=== PATIENT | male | born 1950 | race Two or more races ===

== ENCOUNTER 2022-03-19 18:13 | Inpatient (IN) | payer BC ==
[~2022-03-19] VITALS: Ht 172.7 cm; Wt 75.3 kg
--- NOTE | 2022-03-19 18:35 | NUR ---
BIB RA 889 FROM HOME,BACK PAIN AFTER GLF AT HOME. PLACED ON BED, AAOX3, BREATHING EVEN AND UNLABORED, IN PAIN WHEN MOVED 10/10 PS.
--- NOTE | 2022-03-19 19:38 | NUR ---
BLOOD DRAWN AND SENT TO LAB
--- NOTE | 2022-03-19 19:43 | NUR ---
PATIENT TAKEN TO CT VIA [place]
[2022-03-19 20:08] LABS: BASOPHILS % (AUTO) 0.3 % (0.0-2.0); HEMATOCRIT 42 % (39-51); HEMOGLOBIN 14.6 g/dL (13.5-17.5); LYMPHOCYTES # (AUTO) 0.5 K/uL (0.8-4.8); LYMPHOCYTES % (AUTO) 4.2 % (20.0-44.0); MEAN CORPUSCULAR HGB CONC 35 g/dl (31.0-36.0); MEAN CORPUSCULAR VOLUME 103 fL (80-96); MONOCYTES # (AUTO) 0.6 K/uL (0.1-1.30); NEUTROPHILS # (AUTO) 11.1 K/uL (1.8-8.9); NEUTROPHILS % (AUTO) 90.5 % (43.0-81.0); PLATELET COUNT (AUTO) 172 K/uL (150-450); RED BLOOD CELL COUNT(AUTO) 4.08 MIL/uL (4.5-6.0); WHITE BLOOD COUNT (AUTO) 12.2 K/uL (4.3-11.0)
--- NOTE | 2022-03-19 20:16 | NUR ---
URINE SAMPLE SENT TO LAB
[2022-03-19 20:24] LABS: CALCIUM, SERUM 9.3 mg/dL (8.5-10.1); CARBON DIOXIDE 26 mmol/L (21-32); CHLORIDE 103 mmol/L (98-107); GLUCOSE 217 mg/dL (74-106); SODIUM SERUM 141 mmol/L (136-145); UREA NITROGEN, BLOOD 28 mg/dL (7-18)
[2022-03-19 20:39] LABS: SERUM AMMONIA < 10 umol/L (11-32)
[2022-03-19 20:40] LABS: ALBUMIN 2.8 g/dL (3.4-5.0); ALCOHOL, BLOOD < 3 mg/dL (0-0); ALKALINE PHOSPHATASE 161 U/L (46-116); ASPARTATE AMINOTRANSFERASE 104 U/L (15-37); BILIRUBIN,DIRECT 1.1 mg/dL (0.0-0.2); BILIRUBIN,TOTAL 2.5 mg/dL (0.2-1.0); TOTAL PROTEIN, SERUM 7.5 g/dL (6.4-8.2)
[2022-03-19 20:41] LABS: ACETAMINOPHEN < 10 ug/ml (10-30); POTASSIUM 2.6 mmol/L (3.5-5.1)
[2022-03-19] MEDS ORDERED: IV NS 0.9% 1,000 ML BAG IV ONE (21:00)
[2022-03-19] MEDS ORDERED: PIPERACILLIN /TAZOBACTAM 3.375 G in IV D5W 50 ML IV ONE (21:00)
[2022-03-19] MEDS ORDERED: IV PREMIX D5 1/2NS + KCL 1,000 ML IV ONE (21:00)
[2022-03-19 21:01] LABS: ALANINE AMINOTRANSFERASE 44 U/L (12-78)
[2022-03-19 21:04] LABS: BILIRUBIN,URINE SMALL (NEGATIVE); COLOR,URINE YELLOW (YELLOW); LEUKOCYTE ESTERASE ,URINE NEGATIVE (NEGATIVE); NITRITE, URINE NEGATIVE (NEGATIVE); PROTEIN,URINE TRACE mg/dl (NEGATIVE); UGLUCOSE NEGATIVE (NEGATIVE)
[2022-03-19] MEDS ORDERED: PIPERACILLIN /TAZOBACTAM 3.375 G VIAL IV ONE (21:04)
[2022-03-19 21:12] LABS: BACTERIA,URINE None seen /HPF (None Seen); MUCUS,URINE Few /LPF (None Seen); RBC,URINE 0-2 /HPF (0-2); WBC,URINE 0-2 /HPF (0-3)
[2022-03-19 21:16] LABS: BAND % (MANUAL) 4 % (0.0-5.0); LYMPHOCYTES % (MANUAL) 4 % (16-48); MONOCYTES % (MANUAL) 6 % (0-11.0); NEUTROPHILS % (MANUAL) 86 (42-76)
[2022-03-19] MEDS ORDERED: POTASSIUM CHLORIDE 10 MEQ/50 ML PREMIXED IVPB FOR PERIPHERAL LINE IV ONE (21:30)
[2022-03-19] MEDS ORDERED: MAG HYDROX/AL HYDROX/SIMETH 30 ML UDC PO PRN (21:30)
[2022-03-19] MEDS ORDERED: ACETAMINOPHEN 325 MG TABLET PO PRN (21:30)
[2022-03-19] MEDS ORDERED: Z GUARD REMEDY 4 OZ OINT TP PRN (21:30)
[2022-03-19] MEDS ORDERED: MAGNESIUM HYDROXIDE 30 ML UDC PO PRN (21:30)
[2022-03-19] MEDS ORDERED: ONDANSETRON HCL/PF 4 MG/2 ML VIAL IVP PRN (21:30)
[2022-03-19] MEDS ORDERED: POTASSIUM CL. PREMIX PERIPHER. 200 ML ONE (21:32)
--- NOTE | 2022-03-19 22:48 | NUR ---
REPORT GIVEN TO TERRANCE BUSTILLO [id number] FOR MALATHI
[2022-03-19] MEDS ORDERED: VANCOMYCIN 1.5 GM in IV D5W 500ml IV ONE (23:00)
--- NOTE | 2022-03-19 23:10 | NUR ---
ADMISSION NOTES PT ARRIVED VIA [facility], WITH EMT. AOx3-4, ABLE TO MAKE NEEDS KNOWN. ON RA AND TOLERATING WELL. NO SOB NOTED. TELE MONITOR DETECTS SINUS RHYTHM. IV ACCESS IN RFA #20G AND LFA #20G RUNNING POTASSIUM AND NS @100 ML/HR. SAFETY PRECAUTIONS IN PLACE: BED IN LOWEST, LOCKED POSITION, SIDERAILS UPx2, AND BRAKES ON. TABLE AND CALL LIGHT WITHIN REACH. WILL CONTINUE TO MONITOR. BELONGINGS LIST LOOKED AT AND CELLPHONE AND WATCH ARE NOT FOUND IN PATIENT'S BELONGINGS. CALLED ER TWICE AND THEY SAID IT WAS IN PATIENT'S BAG BUT IT IS NOT IN THERE. CHARGE NURSE, TERRANCE, MADE AWARE. WILL CONTINUE TO FOLLOW UP. Addendum: 03/20/22 at 0238 by SHAGUFTA ASKEW RN CELL PHONE AND WATCH ACCOUNTED FOR
[2022-03-20] MEDS: IV NS 0.9% 1,000 ML IV PRN ×2 (02:35→10:59)
[2022-03-20] MEDS ORDERED: PIPERACILLIN /TAZOBACTAM 3.375 G in IV D5W 50 ML IV SCH (03:00)
[2022-03-20 06:22] LABS: BASOPHILS % (AUTO) 0.1 % (0.0-2.0); HEMATOCRIT 37 % (39-51); HEMOGLOBIN 12.8 g/dL (13.5-17.5); LYMPHOCYTES # (AUTO) 0.7 K/uL (0.8-4.8); LYMPHOCYTES % (AUTO) 7.6 % (20.0-44.0); MEAN CORPUSCULAR HGB CONC 35 g/dl (31.0-36.0); MEAN CORPUSCULAR VOLUME 103 fL (80-96); MONOCYTES # (AUTO) 0.5 K/uL (0.1-1.30); MONOCYTES % (AUTO) 5.2 % (2.0-12.0); NEUTROPHILS # (AUTO) 7.9 K/uL (1.8-8.9); NEUTROPHILS % (AUTO) 87.1 % (43.0-81.0); PLATELET COUNT (AUTO) 137 K/uL (150-450); RED BLOOD CELL COUNT(AUTO) 3.56 MIL/uL (4.5-6.0); WHITE BLOOD COUNT (AUTO) 9.1 K/uL (4.3-11.0)
--- NOTE | 2022-03-20 06:30 | NUR ---
RN CLOSING NOTES REPORT GIVEN TO DAYSHIFT NURSE. PT STABLE. NO DISTRESS NOTED.
[2022-03-20 06:34] LABS: CREATINE KINASE, TOTAL 845 U/L (39-308)
[2022-03-20 06:42] LABS: CALCIUM, SERUM 8.3 mg/dL (8.5-10.1); CARBON DIOXIDE 24 mmol/L (21-32); CHLORIDE 108 mmol/L (98-107); CREATININE 0.6 mg/dL (0.6-1.3); GLUCOSE 166 mg/dL (74-106); MAGNESIUM 1.9 mg/dL (1.8-2.4); PHOSPHORUS 2.3 mg/dL (2.5-4.9); SODIUM SERUM 143 mmol/L (136-145); UREA NITROGEN, BLOOD 25 mg/dL (7-18)
[2022-03-20 06:48] LABS: POTASSIUM 2.7 mmol/L (3.5-5.1)
--- NOTE | 2022-03-20 06:51 | NUR ---
RN NOTES RECEIVED CRITICAL LAB VALUE FOR POTASSIUM OF 2.7. WILL ENDORSE TO DAYSHIFT RN.
[2022-03-20 08:00] VITALS: BP 118/72
[2022-03-20] MEDS: PANTOPRAZOLE 40 MG VIAL IV SCH (09:09)
[2022-03-20 09:23] VITALS: BP 118/72
[2022-03-20] MEDS: POTASSIUM CL. PREMIX PERIPHER. 50 ML IV SCH ×4 (10:56→15:49)
[2022-03-20] MEDS ORDERED: TAMS-12 PO (11:07)
[2022-03-20] MEDS ORDERED: OXYC60TA8 PO (11:07)
[2022-03-20] MEDS ORDERED: OXYC1TAB12 PO (11:07)
[2022-03-20] MEDS ORDERED: QUET300T2 PO (11:07)
[2022-03-20] MEDS ORDERED: PREG-58 PO (11:07)
[2022-03-20 12:00] VITALS: BP 108/72
[2022-03-20] MEDS: PIPERACILLIN /TAZOBACTAM 3.375 G in IV D5W 50 ML IV SCH ×2 (12:22→17:04)
[2022-03-20 12:35] VITALS: BP 162/75
[2022-03-20] MEDS: MORPHINE SULFATE INJ 2 MG/ML DISP.SYRIN IV PRN ×2 (13:23→20:22)
--- NOTE | 2022-03-20 16:36 | NUR ---
SS consult for home safety. SW will follow up at a later time.
--- NOTE | 2022-03-20 18:39 | NUR ---
RN Closing Notes PT AOx3, able to express his concerns, family visited pt today and brought pt snacks and perry, pending swallow eval before pt able to have food or fluids, pt at the moment is NPO. No incidents throughout shift, IV meds and potassium running as ordered. All safety precautions taken throughout shift, bed at lowest position, call light and table at reach.
[2022-03-20] MEDS ORDERED: Sodium Phosphate 15 MMOL in IV NS 0.9% 245 ML IV SCH (19:00)
--- NOTE | 2022-03-20 19:30 | NUR ---
RN OPENING NOTES RECEIVED PT IN BED. AOx3, ABLE TO MAKE NEEDS KNOWN. ON RA AND TOLERATING WELL. NO SOB NOTED. TELE MONITOR DETECTS SINUS RHYTHM WITH PVCs AND PACs. IV ACCESS IN RFA #20G RUNNING NS @100 ML/HR. SAFETY PRECAUTIONS IN PLACE: BED IN LOWEST, LOCKED POSITION, SIDERAILS UPx2, AND BRAKES ON. TABLE AND CALL LIGHT WITHIN REACH. WILL CONTINUE TO MONITOR.
[2022-03-20 20:00] VITALS: BP 134/66
--- NOTE | 2022-03-20 20:22 | NUR ---
RN NOTES ADMINISTERED MORPHINE PER MD ORDER. VS WNL. WILL CONTINUE TO MONITOR.
[2022-03-20] MEDS ORDERED: VANCOMYCIN 1 GM in IV D5W 250 ML IV SCH (23:00)
[2022-03-21] VITALS: BP 140/86
[2022-03-21] MEDS: PIPERACILLIN /TAZOBACTAM 3.375 G in IV D5W 50 ML IV SCH ×2 (00:58→06:19)
[2022-03-21] MEDS: MORPHINE SULFATE INJ 2 MG/ML DISP.SYRIN IV PRN ×4 (02:18→23:14)
--- NOTE | 2022-03-21 02:19 | NUR ---
RN NOTES ADMINISTERED MORPHINE PER MD ORDER. VS WNL. WILL CONTINUE TO MONITOR.
[2022-03-21 06:41] LABS: BASOPHILS % (AUTO) 0.1 % (0.0-2.0); EOSINOPHILS % (AUTO) 0.1 % (0.0-6.0); HEMATOCRIT 36 % (39-51); HEMOGLOBIN 12.6 g/dL (13.5-17.5); LYMPHOCYTES # (AUTO) 0.8 K/uL (0.8-4.8); LYMPHOCYTES % (AUTO) 12.9 % (20.0-44.0); MEAN CORPUSCULAR HGB CONC 35 g/dl (31.0-36.0); MEAN CORPUSCULAR VOLUME 102 fL (80-96); MONOCYTES # (AUTO) 0.3 K/uL (0.1-1.30); MONOCYTES % (AUTO) 5.7 % (2.0-12.0); NEUTROPHILS # (AUTO) 4.9 K/uL (1.8-8.9); NEUTROPHILS % (AUTO) 81.2 % (43.0-81.0); PLATELET COUNT (AUTO) 142 K/uL (150-450); RED BLOOD CELL COUNT(AUTO) 3.49 MIL/uL (4.5-6.0); WHITE BLOOD COUNT (AUTO) 6.1 K/uL (4.3-11.0)
--- NOTE | 2022-03-21 06:55 | NUR ---
RN CLOSING NOTES PT IN BED, ASLEEP, AWAKENS TO VERBAL STIMULI. AOx3, ABLE TO MAKE NEEDS KNOWN. ON RA AND TOLERATING WELL. NO SOB NOTED. TELE MONITOR DETECTS SINUS RHYTHM WITH PVCs AND PACs. IV ACCESS IN RFA #20G RUNNING NS @100 ML/HR AND LFA #18G. ALL ORDERS CARRIED OUT. ALL NEEDS MET. PT KEPT CLEAN AND DRY. TREATED PAIN THROUGHOUT SHIFT. SAFETY PRECAUTIONS IN PLACE: BED IN LOWEST, LOCKED POSITION, SIDERAILS UPx2, AND BRAKES ON. TABLE AND CALL LIGHT WITHIN REACH. WILL ENDORSE TO ONCOMING SHIFT FOR MALATHI.
[2022-03-21 07:17] LABS: ALBUMIN 2.2 g/dL (3.4-5.0); BILIRUBIN,DIRECT 0.6 mg/dL (0.0-0.2); BILIRUBIN,TOTAL 1.3 mg/dL (0.2-1.0); CALCIUM, SERUM 8.3 mg/dL (8.5-10.1); CREATININE 0.6 mg/dL (0.6-1.3); MAGNESIUM 1.8 mg/dL (1.8-2.4); PHOSPHORUS 3.1 mg/dL (2.5-4.9); TOTAL PROTEIN, SERUM 6.5 g/dL (6.4-8.2)
[2022-03-21 07:20] LABS: POTASSIUM 2.6 mmol/L (3.5-5.1)
--- NOTE | 2022-03-21 07:30 | NUR ---
RN MS NOTES PT IN BED, ASLEEP, EASY TO AROUSE, ALERT AND VERBALLY RESPONSIVE, NO COMPLAINT OF PAIN AT THIS TIME, RESPIRATIONS NORMAL, IV FLUIDS INFUSING WELL, CALL LIGHT WITHIN REACH, NEEDS ATTENDED.
[2022-03-21 08:00] VITALS: BP 162/76
[2022-03-21 08:43] VITALS: BP 162/76
[2022-03-21] MEDS: PANTOPRAZOLE 40 MG VIAL IV SCH (08:56)
[2022-03-21] MEDS: AMMONIUM LACTATE 227 GM BOTTLE TP SCH (09:16)
[2022-03-21] MEDS: POTASSIUM CL. PREMIX PERIPHER. 50 ML IV SCH ×4 (10:01→14:58)
[2022-03-21] MEDS ORDERED: DOXYCYCLINE HYCLATE (100 MG) 100 MG TABLET PO SCH (12:00)
[2022-03-21 12:30] VITALS: BP 147/98
--- NOTE | 2022-03-21 12:52 | NUR ---
SS consult requested for home safety. Pt. is a 71-year-old male who was admitted to [facility] on 03/19/2022 due to altered mental status. Per EMR, who presented from home after being found lying on the floor for unknown duration. Upon SS consult, pt. is alert and oriented x4. Pt. presents with a dysphoric mood and congruent affect. Pt. appears unkempt and provides appropriate eye contact. Pt. was cooperative throughout the interview. event planner explored pt.s social support. Pt. stated he lives alone at [address] [place] [address]. Pt. stated he lives next door to his friend Isabella. Pt. states that he sees his friend, Isabella every day. Pt. stated that he also has a daughter, Moris [phone]. who checks in on him. event planner offered the pt. senior resources and the pt. accepted them. event planner explored pt.s financial situation. Pt. stated he does not receive social security income or disability. event planner explored pt.s substance use history. Pt. denies substance use history. event planner explored pt.s psychiatric history. Pt. stated he does not have a psychiatric diagnosis. Pt. denied suicidal/homicidal ideation. Pt. denied visual and auditory hallucinations. The pt. ambulates with walker and pt. does not have a caregiver. Per pt. he is independent with his ADLs at this time. Plan: Upon discharge, The pt. states he wants to return home alone [[address] [place] [id number]]. Per CM note, the pt.s daughter, Moris [phone] is requesting SNF placement as she is unable to be the pt.s caregiver. CM will follow MD & PT recommendation. SW provided pt. with the following senior resources and pt. accepted them: ABUSE PREVENTION: ELDER ABUSE HOTLINE (11/03) ADULT PROTECTIVE SERVICES HOTLINE LONG-TERM CARE [facility] AREA ON AGING (HOTLINE) ADULT DAY HEALTH CARE CARE CENTERS: Private pay or [facility] funded adult day care [facility] , [facility] Services , [facility] Adult Care Center , [facility] Day Health Care , [facility] Day Health Care , [facility] Adult Daycare Center , [place] [facility] Generation [facility] , Tyrel [facility] , [place] ALZHEIMERS DISEASE/DEMENTIA: Alzheimers Association Helpline [facility] Chapter www.alz.org/[facility] Department of Aging www.lacity.org Family Caregiver Simms www.caregiver.org [place] Caregiver Resources Center/Family Support www.[facility].org CANCER RESOURCES: [place] Cancer Society www.cancer.org Cancer Support Community www.CancerSupportVvsb.org: CancerCare www.cancercare.org [facility] Cancer Support Center www.[facility].org COMMUNITY HEALTH ASSOCIATIONS: AARP www.aarp.org ALS Association (ask for Shawna) www.als.org Trin[place] Diabetes Association www.diabetes.org Trin[place] Heart Association www.heart.org Trinidadian Lung Association www.lungusa.org Trinidadian Parkinson Disease Association www.apdaparkinson.org Trinidadian Hemingway , www.redcross.org Arthritis Foundation www.arthritis.org Crohns & Colitis Foundation of Trinidadian www.ccfa.org/chapters/[place] National Multiple Sclerosis Society www.nationalmssociety.org Myasthenia Gravis Foundation www.myasthenia-ca.org National Stroke Association www.stroke.org CONSERVATORSHIP & GUARDIANSHIP: AARP Alis [facility] Legal Services Center for Health Care Rights Eldercare Information and Referral Education Diagnostician Foundation [facility] [place] [place]: [facility] Referral Service [facility] Legal Services Office of the Public Guardian [place] EYESIGHT DISORDER RESOURCES: [place] Macular Degeneration Foundation [facility] www.[facility].org GRIEF AND BEREAVEMENT RESOURCES: [facility] , [facility] THE [place] Connection , [facility] Bereavement Center , [place] HEARING DISORDER RESOURCES: [place] Telephone Access Program Deaf and Disabled Telecommunications Program www.ddtp.cpu.ca.gov HearRx Hearing Centers ([place]) Better Hearing Systems , [place] GLAD ([facility] Agency on Deafness) V/ TTY; Physical Chemistry Teacher , [facility] Hearing Foundation -low income hearing aid assistance www.Eka Software Solutionshearingfoundation.org [place] Hearing Care , Partha HELP AT HOME CAREGIVER SUPPORT: In Home Support Services (Must have Medi-Kaley to be eligible) *Ask for a list of agencies that provide services to assist with care in the home. Local Senior Centers also have listings of care providers. HOME SAFETY MODIFICATIONS AND EQUIPMENT: Senior centers have additional referrals. [place] Housing and Community Investment Dept. Handyworker Program (low income) or Visit http://hcidla.lacity.org/yuf-ljzzpv-lx for more information National Seating and Mobility and/or ; Forever Active www.foreverWalmoomed.com Stay Home Safe www.Stayhomesafe.com LIFE ALERT RESPONSE SYSTEM: AvidRetail Services 888-273-9029 www. Upstream Technologies Life Alert 304-797-6738 www.LEID Products Life Station 382-840-1680 wwwYoursphere Mediaation.1EQ Safe Return 723-857-0284 www.alz.or/safereturn Cell Phones for Seniors www.Pandora Media MEALS AND FOOD PROGRAMS: [place] Meals on Wheels [phone] [place] Meals on Wheels [phone] [facility] [phone] [place] to the Homebound [phone] [place] to the Homebound [phone] [facility] to the Homebound [phone] [facility] to the Homebound [phone] [facility] Center[facility] [phone] [facility] [phone] ONE Generation [phone] [facility] [phone] [facility] [phone] Meals on Wheels [phone] For all ages: $6.85/ meal w side. Delivered M-F from 10 am-1pm. Application and payment is done over the phone. Frozen meals available for weekends. Emergency Food [facility] children[facility] hospital [phone] [facility] County Supervisor [phone] [facility] [phone] [facility] Brown bag lunches [phone] [facility] [phone] MEAL/GROCERY DELIVERY PROGRAMS: [facility] Gourmet Meals [phone]- [facility] [phone]- [facility] Magic Kitchen [phone] Moms Meals [phone] (ask Rios for Discount Select grocery stores may provide delivery. MEDICAL INSURANCE SUPPORT SERVICES: Center for Health Care Rights [phone] Health Insurance Counseling/Advocacy Programs (HICAP)-Must have Medicare. Offers counseling for Medi-Kaley eligibility [phone] [facility] Public County Supervisor [phone] www.[facility].ca.gov Medicare 664-647-6386 www.socialsecurity.org Social Security [phone] SENIOR ACTIVITY PROGRAMS: *Contact a local senior center, adult school, recreation facility or community college for education, fitness, recreation, and social programs. Aquatic Therapy and Adapted Exercise programs through [facility] [phone] [facility] 491-089-5428 www.[facility]/encore U- Senior Friends [phone] [place] Senior Programs 589-050-5955 www.oasisnet.org Suddenly 65 www.jdhjkjev05.com SENIOR CENTERS: [facility] [phone] [facility] [place] [phone] [facility] [phone] [facility] [phone] [facility] [phone] [facility] [phone] [facility] [phone] [facility] [phone] One Generation, [place] [facility] [phone] [facility] [phone] [facility] [phone] [facility] [phone] [facility] [phone] TRANSPORTATION: Local [facility] Centers may have applications for transportation programs and additional resources. ACCESS Services [phone] Transportation for seniors and disabled persons 7 days a week requiring 254 hr. advance reservation. Must apply and register for program ledy eligible. Black Chair Group 448-654-1882 or [phone] Transportation for seniors and persons with ADA card/metro disabled card in the [facility]. M-F only. Must register for services. ONE GENERATION [phone] Serves 65 years + in conjunction with TV Talk Network program. Must be registered with both programs. A to B Transport [phone] Provides wheelchair/gurney van service. Adult Medical Transport [phone] Accepts Medi-kaley with prior authorization. Care Van [phone] Provides wheelchair Transport. [facility] Wide Transportation [phone] Provides gurney service Gentle [facility] [phone] Gurney Transport. [facility] Town Transportation [phone] wheelchair & gurney transport [facility] Transportation [phone] wheelchair & gurney transport [place] Non-Emergency Transport [phone] wheelchair & gurney transport [facility] [phone] Short Term Transportation primarily for adults with disabilities on social security income. Nominal fee may apply and a reservation is required. The One-Page Company Cab [phone] or [phone] PANOSOL [facility] Center[facility] [phone] [place] [address] Referral Services -[phone] For additional programs & services VETERANS RESOURCES: Submissions for Aid and Attendance should be done directly to [facility] office locatd at : [address] [place] [address] X110 National Caregiver Support Line [phone] [facility] Veterans Services Field Office [phone] [place] Department of [place] Affairs [phone] Pension Information [phone]
[2022-03-21] MEDS: CEFEPIME 2 GM in IV D5W 100 ML IV SCH ×2 (13:23→20:53)
[2022-03-21] MEDS: IV NS 0.9% 1,000 ML IV PRN (13:33)
[2022-03-21 16:00] VITALS: BP 161/87
--- NOTE | 2022-03-21 18:28 | NUR ---
RN MS NOTES PT IN BED, AWAKE, ALERT, NO SOB, PAIN MEDS GIVEN ORDERED, SEEN BY DR. RICHARDSON, PLAN OF CARE DISCUSSED WITH PT, POTASSIUM REPLACED, AWAITING POTASSIUM LEVEL RESULT, ALSO SEEN BY DR. SILVEIRA TODAY, IV MEDS GIVEN ORDERED, PM CARE DONE, ALL NEEDS ATTENDED.
--- NOTE | 2022-03-21 19:30 | NUR ---
MS RN OPENING NOTE RECEIVED PATIENT IN BED, WITH EYES CLOSED, EASY TO AROUSE. A/OX3, FLAT AFFECT. NO S/S OF APPARENT DISTRESS IN ROOM AIR. DENIES PAIN AT THIS TIME. L. FA #18G RUNNING NS @100MLS/HR. RE-ORIENTED AND ENCOURAGED WITH THE USE OF CALL LIGHT. SAFETY IN PLACE. WILL CONTINUE WITH PATIENT'S PLAN OF CARE.
[2022-03-21 20:00] VITALS: BP 146/87
[2022-03-21] MEDS: DOXYCYCLINE 100 MG in IV D5W 100 ML IV SCH (21:01)
[2022-03-22] MEDS: MORPHINE SULFATE INJ 2 MG/ML DISP.SYRIN IV PRN ×3 (05:28→18:56)
[2022-03-22 06:33] LABS: BASOPHILS % (AUTO) 0.4 % (0.0-2.0); EOSINOPHILS % (AUTO) 0.9 % (0.0-6.0); HEMATOCRIT 40 % (39-51); HEMOGLOBIN 14.3 g/dL (13.5-17.5); LYMPHOCYTES % (AUTO) 15.3 % (20.0-44.0); MEAN CORPUSCULAR HGB CONC 36 g/dl (31.0-36.0); MEAN CORPUSCULAR VOLUME 103 fL (80-96); MONOCYTES # (AUTO) 0.4 K/uL (0.1-1.30); MONOCYTES % (AUTO) 6.1 % (2.0-12.0); NEUTROPHILS # (AUTO) 5.2 K/uL (1.8-8.9); NEUTROPHILS % (AUTO) 77.3 % (43.0-81.0); PLATELET COUNT (AUTO) 172 K/uL (150-450); RED BLOOD CELL COUNT(AUTO) 3.94 MIL/uL (4.5-6.0); WHITE BLOOD COUNT (AUTO) 6.7 K/uL (4.3-11.0)
--- NOTE | 2022-03-22 06:48 | NUR ---
MS RN CLOSING NOTE PATIENT IN BED WITH EYES CLOSED, EASY TO AROUSE, A/OX3. NO S/ OF APPARENT DISTRESS IN ROOM AIR. PAIN MANAGED WITH MEDICATION. NO FLUIDS RUNNING AT THIS TIME. ALL NEEDS ATTENDED. ALL SCHEDULED MEDICATION ADMINISTERED. SAFETY KEPT IN PLACE THE WHOLE SHIFT. WILL ENDORSE TO MORNING SHIFT RN FOR CONTINUITY OF CARE.
[2022-03-22 07:15] LABS: MAGNESIUM 1.7 mg/dL (1.8-2.4); PHOSPHORUS 2.7 mg/dL (2.5-4.9)
--- NOTE | 2022-03-22 07:30 | NUR ---
MS RN OPENING NOTES: RECEIVED PT IN BED ASLEEP AND EASILY AROUSED WITH STIMULI. A/O X 3. NO SOB OR CARDIAC DISTRESS NOTED. AFEBRILE. MAINTAINED ON NPO. WITH IV ACCESS ON LFA G#18, RFA G#20 PATENT INTACT AND SALINE LOCKED. KEPT RESTED AND COMFORTABLE. SAFETY PREC MAINTAINED: BED LOCKED AND IN LOWEST POSITION, SIDE RAILS UP X 2. CALL LIGHT IN EASY REACH FOR HELP/ASSISTANCE.
[2022-03-22] MEDS: CEFEPIME 2 GM in IV D5W 100 ML IV SCH (09:19)
[2022-03-22] MEDS: PANTOPRAZOLE 40 MG VIAL IV SCH (09:19)
[2022-03-22] MEDS: DOXYCYCLINE 100 MG in IV D5W 100 ML IV SCH ×2 (09:21→21:06)
[2022-03-22] MEDS: AMMONIUM LACTATE 227 GM BOTTLE TP SCH (09:22)
--- NOTE | 2022-03-22 11:08 | NUR ---
RN NOTES: SEEN AND EXAMINED BY ST, AND ST OFFERED THIN LIQUID AND APPLE SAUSE WITHOUT COUGHING. PER ST HE'S RECOMMENDING PUREED DIET THIN LIQUIDS. INFORMED DR RICHARDSON.
[2022-03-22] MEDS: Magnesium 1GM/D5W 100ML PREMIX 100 ML IV SCH ×2 (11:37→12:49)
--- NOTE | 2022-03-22 12:00 | NUR ---
RN NOTES: RELAYED POTASSIUM LEVEL 03/21/2022 2.7, (ANJU RICHARDSON) ORDERED POTASSIUM CHLORIDE 4MMeQ iv ONE TIME ONLY. ORDERED NOTED AND CARRIED OUT.
[2022-03-22] MEDS: POTASSIUM CL. PREMIX PERIPHER. 50 ML IV SCH ×4 (12:18→15:23)
--- NOTE | 2022-03-22 18:39 | NUR ---
MS RN CLOSING NOTES: PT IN BED AWAKE A/O X 2. NO SOB OR CARDIAC DISTRESS NOTED. AFEBRILE. WITH IV ACCESS ON LFA G#18, RFA G#20 PATENT INTACT AND SALINE LOCKED. KEPT RESTED AND COMFORTABLE. SAFETY PREC MAINTAINED: BED LOCKED AND IN LOWEST POSITION, SIDE RAILS UP X 2. CALL LIGHT IN EASY REACH FOR HELP/ASSISTANCE.ENDORSED TO SAMPLE DRILLER FOR MALATHI.
[2022-03-22 20:00] VITALS: BP 142/68
--- NOTE | 2022-03-22 20:19 | NUR ---
MS RN OPENING NOTES: RECEIVED PATIENT AWAKE IN BED, BED IN LOW POSITION CALL LIGHTS WITHIN REACH, NO COMPLAIN OF PAIN AND DISCOMFORT AT THIS TIME, ON ROOM AIR SATURATING WELL WITH IV LINE AT LFA#18 AND RFA#18 SL PATIENT KEPT CLEAN AND DRY ALL NEEDS MET WILL CONTINUE TO MONITOR
[2022-03-23] MEDS: MORPHINE SULFATE INJ 2 MG/ML DISP.SYRIN IV PRN ×3 (02:11→14:54)
--- NOTE | 2022-03-23 06:21 | NUR ---
MS RN CLOSING NOTES: PATIENT SLEEP IN BED, BED IN LOW POSITION CALL LIGHTS WITHIN REACH, ON ROOM AIR SATURATING WELL, NO SOB WAS OBSERVED, PATIENT IS A/OX2-3 ABLE TO EXPRESS NIEDS,PATIENT KEPT CLEAN AND DRY ALL NEEDS CHANGE WILL CONTINUE TO MONITOR.
[2022-03-23 06:41] LABS: BASOPHILS % (AUTO) 0.3 % (0.0-2.0); EOSINOPHILS % (AUTO) 2.3 % (0.0-6.0); HEMATOCRIT 38 % (39-51); HEMOGLOBIN 13.2 g/dL (13.5-17.5); LYMPHOCYTES # (AUTO) 1.2 K/uL (0.8-4.8); LYMPHOCYTES % (AUTO) 17.8 % (20.0-44.0); MEAN CORPUSCULAR HGB CONC 35 g/dl (31.0-36.0); MEAN CORPUSCULAR VOLUME 102 fL (80-96); MONOCYTES # (AUTO) 0.4 K/uL (0.1-1.30); MONOCYTES % (AUTO) 6.4 % (2.0-12.0); NEUTROPHILS # (AUTO) 4.8 K/uL (1.8-8.9); NEUTROPHILS % (AUTO) 73.2 % (43.0-81.0); PLATELET COUNT (AUTO) 171 K/uL (150-450); WHITE BLOOD COUNT (AUTO) 6.5 K/uL (4.3-11.0)
[2022-03-23 07:04] LABS: CALCIUM, SERUM 8.3 mg/dL (8.5-10.1); CREATININE 0.7 mg/dL (0.6-1.3); MAGNESIUM 1.8 mg/dL (1.8-2.4); PHOSPHORUS 2.8 mg/dL (2.5-4.9); POTASSIUM 2.9 mmol/L (3.5-5.1)
--- NOTE | 2022-03-23 07:30 | NUR ---
MS RN OPENING NOTES: RECEIVED PT IN BED ASLEEP AND EASILY AROUSED WITH STIMULI. A/O X 3. NO SOB OR CARDIAC DISTRESS NOTED. AFEBRILE. DENIES ANY PAIN AT THIS TIME. WITH IV ACCESS ON LFA G#18, RFA G#20 NS @100 ML/HR PATENT INTACT AND SALINE LOCKED. KEPT RESTED AND COMFORTABLE. SAFETY PREC MAINTAINED: BED LOCKED AND IN LOWEST POSITION, SIDE RAILS UP X 2. CALL LIGHT IN EASY REACH FOR HELP/ASSISTANCE.
[2022-03-23] MEDS: PANTOPRAZOLE 40 MG VIAL IV SCH (08:38)
[2022-03-23] MEDS ORDERED: DOXYCYCLINE HYCLATE (100 MG) 100 MG TABLET PO SCH (09:00)
[2022-03-23] MEDS ORDERED: POTASSIUM CL. PREMIX PERIPHER. 50 ML IV SCH (09:00)
[2022-03-23] MEDS: POTASSIUM CHLORIDE 20 MEQ TAB.PRT.SR PO SCH ×2 (09:14→10:37)
[2022-03-23] MEDS: AMMONIUM LACTATE 227 GM BOTTLE TP SCH (09:15)
[2022-03-23] MEDS: IV NS 0.9% 1,000 ML IV PRN (09:45)
[2022-03-23] MEDS ORDERED: DOXY100T2 PO (16:26)
[2022-03-23] MEDS ORDERED: AMMO225L14 TP (16:26)
[2022-03-23] MEDS ORDERED: HYDROCODONE/APAP 10/325MG TABLET PO PRN (16:30)
[2022-03-23] MEDS ORDERED: PREGABALIN 25 MG CAPSULE PO SCH (17:00)
--- NOTE | 2022-03-23 19:00 | NUR ---
DISCHARGED NOTES: PATIENT DC TO [facility]. PATIENT ALERT AND ABLE TO VERBALIZED NEEDS. NO SOB OR CARDIAC DISTRESS NOTED, AFEBRILE. REPORT GIVEN TO KENY LOPEZ. HAD COVID TEST DONE TODAY AND ITS NEGATIVE, INFORMED CREDIT RISK SPECIALIST AND CM WILL FAX THE RESULT TO SNF. SKIN ISSUES POHOTO TAKEN AND FILED TO PT'S CHART. IDENTIFICATION BAND MAINTAINED. IV LINES REMOVED. PT KEPT CLEAN AND DRY. BELONGINGS TAKEN WITH THE RESIDENT AND UNABLE TO SIGNED. DC PAPERS AND MEDS GIVEN TO CREDIT RISK SPECIALIST. PATIENT LEFT THE UNIT STABLE.
[2022-03-23] MEDS ORDERED: oxyCODONE HCL SR 20MG TAB.SR.12H PO SCH (21:00)
[2022-03-23] MEDS ORDERED: TAMSULOSIN 0.4 MG CAP.SR.24H PO SCH (22:00)
[2022-03-23] MEDS ORDERED: QUETIAPINE FUMARATE 100 MG TABLET PO SCH (22:00)
== END 2022-03-23 18:00 | DRG 871 ==
LOC: ER 18:46 → TELE 21:50 → MED 03-21 10:28
PROVIDERS: ADMIT Nurse Practitioner Acute Care; ATTEND Registered Nurse
DX: A41.9 Sepsis, unspecified organism (principal); G92.8 Other toxic encephalopathy; J15.9 Unspecified bacterial pneumonia; L03.115 Cellulitis of right lower limb; E44.0 Moderate protein-calorie malnutrition; E87.2 Acidosis; M62.82 Rhabdomyolysis; M84.48XA Pathological fracture, other site, initial encounter for fracture; G93.40 Encephalopathy, unspecified; I48.91 Unspecified atrial fibrillation; M47.9 Spondylosis, unspecified; Z20.822 Contact with and (suspected) exposure to COVID-19; E87.6 Hypokalemia; R79.89 Other specified abnormal findings of blood chemistry; R74.01 Elevation of levels of liver transaminase levels; E88.09 Other disorders of plasma-protein metabolism, not elsewhere classified; M20.41 Other hammer toe(s) (acquired), right foot; M20.42 Other hammer toe(s) (acquired), left foot; Z86.73 Personal history of transient ischemic attack (TIA), and cerebral infarction without residual deficits; E80.6 Other disorders of bilirubin metabolism; W18.30XA Fall on same level, unspecified, initial encounter; Y92.009 Unspecified place in unspecified non-institutional (private) residence as the place of occurrence of the external cause; I49.3 Ventricular premature depolarization; G93.89 Other specified disorders of brain; G89.29 Other chronic pain; L85.3 Xerosis cutis
CPT/HCPCS: 36415; 70450-TC; 71045-TC; 72125-TC; 72131-TC; 76700-TC; 80048-TC; 80076-TC; 80202-TC; 81001; 82140-TC; 82550-TC; 82553; 83605-TC; 83735-TC; 84100-TC; 84132-TC; 84443-TC; 84484-TC; 85025-TC; 85730-TC; 87040-TC; 87081-TC; 87086-TC; 92526; 92611-TC; 97116-TC; 97530-TC; A9563; C9113; C9803; G0378; G0480; J0692; J2270; J2543; J3370; J3475; J3480; J3490; J7030; J7040; J7050; J7060